=== PATIENT | male | born 1975 | race Two or more races ===

== ENCOUNTER → 2017-11-13 | Emergency (ER) | payer OTHER ==
[~2017-11-13] VITALS: Ht 170.2 cm; Wt 69.9 kg
[~2017-11-13] MED LIST: DEPAKENE250 MG PO; DEPAKOTE ER250 MG
== END | disposition left against medical advice (07) ==
LOC: ER 09:33
DX: R53.81 Other malaise (principal)

== ENCOUNTER → 2018-01-02 | Emergency (ER) | payer OTHER ==
[~2018-01-02] VITALS: Ht 177.8 cm; Wt 81.6 kg
== END | disposition left against medical advice (07) ==
LOC: ER 11:41
DX: Z53.20 Procedure and treatment not carried out because of patient's decision for unspecified reasons (principal)

== ENCOUNTER → 2018-06-11 | Emergency (ER) | payer OTHER ==
[~2018-06-11] VITALS: Ht 170.2 cm; Wt 77.6 kg
[~2018-06-11] MED LIST changes: +BENADRYL50 MG PO
== END | disposition left against medical advice (07) ==
LOC: ER 10:20
DX: Z53.20 Procedure and treatment not carried out because of patient's decision for unspecified reasons (principal)